=== PATIENT | male | born 1980 | race Caucasian/White ===

== ENCOUNTER 2021-01-25 10:15 | Emergency (ER) | payer BC, OTHER ==
[~2021-01-25] VITALS: Ht 190.5 cm; Wt 122.5 kg
[2021-01-25] MEDS ORDERED: IV NORMAL SALINE 1000 ML BAG IV ONE (11:00)
[2021-01-25] MEDS ORDERED: DEXAMETHASONE SOD PHOSPHATE 4 MG INJ IV ONE (11:00)
[2021-01-25] MEDS ORDERED: KETOROLAC TROMETHAMINE 15 MG INJ IVP ONE (11:00)
[2021-01-25] MEDS ORDERED: CLINDAMYCIN PHOSPHATE IV 600 MG in IV DEXTROSE 5% 100 ML IV ONE (11:00)
[2021-01-25] MEDS ORDERED: DEXAMETHASONE SOD PHOSPHATE 10 MG INJ ONE (11:21)
[2021-01-25] MEDS ORDERED: KETOROLAC TROMETHAMINE 15 MG INJ ONE (11:21)
[2021-01-25 11:45] LABS: HEMATOCRIT 38.7 % (36.7-47.1); MEAN CORPUSCULAR HEMOGLOBIN 28.8 uug (23.8-33.4); MEAN CORPUSCULAR VOLUME 84.6 fL (73.0-96.2); PLATELET COUNT (AUTO) 189 K/uL (152-348)
[2021-01-25 11:56] LABS: CREATININE 0.7 mg/dL (0.6-1.3); POTASSIUM 3.3 mmol/L (3.5-5.1)
[2021-01-25 12:01] LABS: BILIRUBIN,DIRECT 0.2 mg/dL (0.0-0.2); BILIRUBIN,TOTAL 0.8 mg/dL (0.2-1.0); TOTAL PROTEIN, SERUM 6.7 g/dL (6.4-8.2)
[2021-01-25] MEDS ORDERED: SWABABLE VALVE TRANSFER SET EA MC ONE (12:31)
[2021-01-25] MEDS ORDERED: IOHEXOL 300MG/ML 100 ML INFUS..BTL ONE (12:31)
[2021-01-25] MEDS ORDERED: IV NORMAL SALINE 250 ML IV ONE (12:31)
--- NOTE | 2021-01-25 14:17 | NUR ---
Pt laying supine. In NAD, with not complaint of pain at this time. ABX have been completed. Continuing NS fluid at this time. VSS.
--- NOTE | 2021-01-25 15:12 | NUR ---
IV fluids complete. Pt is sleeping and stable. Provider notified.
[2021-01-25] MEDS ORDERED: CLIN300C12 PO (15:34)
[2021-01-25] MEDS ORDERED: IBUP-1957 PO (15:34)
--- NOTE | 2021-01-25 15:48 | NUR ---
LAB RESULTS AND DISCHARGE INSTRUCTIONS RENDERED BY DR PAINTER. PRESCRIPTION EXPLAINED AND HANDED OVER TO PT. SALINE LOCK DCD. DISCHARGED IN STABLE CONDITION.
[2021-01-25 15:51] VITALS: BP 120/74
== END 2021-01-25 15:52 | disposition home or self-care (01) ==
LOC: ER 10:17
DX: L03.211 Cellulitis of face (principal); R59.0 Localized enlarged lymph nodes; R94.31 Abnormal electrocardiogram [ECG] [EKG]
CPT/HCPCS: 36415; 70487; 71045; 80048; 80076; 83605; 84145; 84484; 85025; 87040 ×2; 93005; 96365; 96366; 96375; 99285; J1100; J1885; J3490; J7060; Q9967; 70030-TC; A4663; J7030; J7050

== ENCOUNTER 2021-03-10 17:02 | Emergency (ER) | payer BC, OTHER ==
[~2021-03-10] VITALS: Ht 190.5 cm; Wt 122.5 kg
[~2021-03-10 17:02] MED LIST: CLIN300C12 PO; IBUP-1957 PO
--- NOTE | 2021-03-10 17:25 | NUR ---
PT IS IN ROOM #2A. DR MATHEWS EVALUATED THE PT.
[2021-03-10] MEDS ORDERED: SULF1TAB48 PO (17:27)
[2021-03-10] MEDS ORDERED: CEPH500T PO (17:27)
--- NOTE | 2021-03-10 17:35 | NUR ---
PT WAS D/C'd TO HOME. D/C INSTRUCTIONS GIVEN TO THE PT BY DR MATHEWS.
[2021-03-10 17:36] VITALS: BP 142/88
== END 2021-03-10 17:38 | disposition home or self-care (01) ==
LOC: ER 17:04
DX: L03.211 Cellulitis of face (principal)
CPT/HCPCS: A4663